=== PATIENT | female | born 1970 | race Caucasian/White ===

== ENCOUNTER 2019-12-02 06:31 | Emergency (ER) | payer BC ==
[2019-12-02 06:58] VITALS: O2SAT 98
[2019-12-02] MEDS ORDERED: diphenhydrAMINE HCL 50 MG/ML VIAL IM ONE (07:12)
[2019-12-02] MEDS ORDERED: DEXAMETHASONE INJ 10 MG/ML VIAL IM ONE (07:13)
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
[2019-12-02 07:55] VITALS: BP 135/105; TEMP 97.4
[2019-12-02] MEDS ORDERED: FAMOTIDINE 20 MG TAB PO SCH (09:00)
== END 2019-12-02 07:50 | disposition home or self-care (01) ==
LOC: ER 06:31
DX: L24.5 Irritant contact dermatitis due to other chemical products (principal)
CPT/HCPCS: J1100; J1200

== ENCOUNTER 2020-08-06 02:32 | Emergency (ER) | payer BC ==
[2020-08-06 03:11] VITALS: TEMP 97.7
--- NOTE | 2020-08-06 03:19 | RAD ---
EXAM DESCRIPTION: Chest,1 View 08/06/2020 3:17 AM DIRECTOR OF MEDIA CLINICAL HISTORY: 49 years, Female, short of breath COMPARISON: None. FINDINGS: Single view of the chest was obtained portable. No prior films are available for comparison. The cardiomediastinal silhouette demonstrate to be unremarkable. For heart is not enlarged. The thoracic aorta is unremarkable. Costophrenic angles are sharp. No areas of consolidation or masses are seen. External EKG leads within the [id number] limits diagnosis. The rest of the soft tissue and bony structures demonstrate to be unremarkable. IMPRESSION: NO ACUTE CARDIOPULMONARY DISEASE SEEN. Electronically signed by: Antonio Lowery MD 08/06/2020 3:17 AM DIRECTOR OF MEDIA
[2020-08-06] MEDS ORDERED: AZITHROMYCIN 250 MG TAB PO ONE (03:33)
[2020-08-06] MEDS ORDERED: DEXAMETHASONE 4 MG TAB PO ONE (03:33)
--- NOTE | 2020-08-06 03:37 | ED.PDOC ---
History of Present Illness - General Chief Complaint: Respiratory Problem Stated Complaint: short of breath COVID + Time Seen by Provider: 08/06/20 03:18 Source: patient Exam Limitations: no limitations - History of Present Illness Initial Comments: 5 D SX. COVID POS TODAY. Timing/Duration: constant, other - SEVERAL DAYS Severity: moderate Improving Factors: nothing Worsening Factors: nothing Associated Symptoms: shortness of breath Allergies/Adverse Reactions: Allergies NO KNOWN ALLERGY Allergy (Verified 08/06/20 02:43) Home Medications: Ambulatory Orders Famotidine [Pepcid] 20 mg PO BID #10 tab 12/02/19 Methylprednisolone [Medrol Dose Toi] 4 mg PO DAILY 6 Days #21 tab 12/02/19 diphenhydrAMINE HCL [Benadryl] 25 mg PO Q6H #20 cap 12/02/19 Albuterol Inhaler [Ventolin Hfa Inhaler] 2 puff INH Q6H PRN #1 inh 08/06/20 Azithromycin Tab [Zithromax Tab] 250 mg PO DAILY 4 Days #4 tab 08/06/20 Dexamethasone 6 mg PO DAILY 5 Days #5 tab 08/06/20 Review of Systems - Review of Systems Constitutional: States: no symptoms reported EENTM: States: no symptoms reported Respiratory: States: short of breath. Denies: cough Cardiology: States: no symptoms reported Gastrointestinal/Abdominal: States: no symptoms reported Genitourinary: States: no symptoms reported Musculoskeletal: States: no symptoms reported Skin: States: no symptoms reported Neurological: States: no symptoms reported Endocrine: States: no symptoms reported Hematologic/Lymphatic: States: no symptoms reported All other Systems: Reviewed and Negative Past Medical History (General) - Patient Medical History Hx Seizures: No Hx Stroke: No Hx Dementia: No Hx Asthma: No Hx of COPD: No Hx Cardiac Disorders: No Hx Congestive Heart Failure: No Hx Pacemaker: No Hx Hypertension: No Hx Thyroid Disease: Yes Hx Diabetes: No Hx Gastroesophageal Reflux: No Hx Renal Disease: No Hx Cancer: No Hx of HIV: No Hx Hepatitis C: No Hx MRSA: No Surgical History: Hysterectomy - Vaccination History Hx Tetanus, Diphtheria Vaccination: Yes Hx Influenza Vaccination: Yes Hx Pneumococcal Vaccination: No - Social History Hx Tobacco Use: No Hx Chewing Tobacco Use: No Hx Alcohol Use: No Hx Substance Use: No Hx Substance Use Treatment: No Hx Depression: No Hx Physical Abuse: No Hx Emotional Abuse: No Hx Suspected Abuse: No - Female History Patient : No - Hyst Family Medical History - Family History Mother Family History: No Known Physical Exam - Physical Exam General Appearance: Alert, No apparent distress Eye Exam: bilateral normal Ears, Nose, Throat: hearing grossly normal, normal ENT inspection Neck: non-tender, full range of motion Respiratory: lungs clear, normal breath sounds, no respiratory distress, no accessory muscle use Cardiovascular/Chest: regular rate, rhythm, no edema Peripheral Pulses: radial,right: 2+, radial,left: 2+ Gastrointestinal/Abdominal: non tender, soft Extremity: normal range of motion, normal inspection Neurologic: no motor/sensory deficits, alert, normal mood/affect Skin Exam: normal color, warm/dry Lymphatic: no adenopathy Progress - Results/Orders Results/Orders: CXR, CBC, CMP NEG. 97% ON RA, LUNGS CTAB. SAFE FOR DC TO HOME ON AZITHROMYCIN AND DEXAMETHASONE, 1ST DOSE GIVEN IN ER. F/U W/ PCP. Departure - Departure Clinical Impression: COVID-19 virus infection, Dyspnea due to COVID-19 Disposition: Discharge to Home or Self Care Condition: Good Departure Forms: ED Discharge - Pt. Copy, Patient Portal Self Enrollment Diet: resume usual diet Activity: increase activity as tolerated Referrals: ANAND DINH DO [Primary Care Provider] - 1-2 Weeks Prescriptions: Dexamethasone 6 mg PO DAILY 5 Days #5 tab Albuterol Inhaler [Ventolin Hfa Inhaler] 2 puff INH Q6H PRN #1 inh PRN Reason: WHEEZE Azithromycin Tab [Zithromax Tab] 250 mg PO DAILY 4 Days #4 tab Home Medications: Ambulatory Orders Famotidine [Pepcid] 20 mg PO BID #10 tab 12/02/19 Methylprednisolone [Medrol Dose Toi] 4 mg PO DAILY 6 Days #21 tab 12/02/19 diphenhydrAMINE HCL [Benadryl] 25 mg PO Q6H #20 cap 12/02/19 Albuterol Inhaler [Ventolin Hfa Inhaler] 2 puff INH Q6H PRN #1 inh 08/06/20 Azithromycin Tab [Zithromax Tab] 250 mg PO DAILY 4 Days #4 tab 08/06/20 Dexamethasone 6 mg PO DAILY 5 Days #5 tab 08/06/20
[2020-08-06 03:43] VITALS: BP 124/89
[2020-08-06 03:57] VITALS: O2SAT 94
== END 2020-08-06 04:00 | disposition home or self-care (01) ==
LOC: ER 02:32
DX: U07.1 COVID-19 (principal); E07.9 Disorder of thyroid, unspecified; Z79.899 Other long term (current) drug therapy
CPT/HCPCS: 36415; 71045; 80053; 85025; 93005; J8540; Q0144